=== PATIENT | male | born 1960 ===

== ENCOUNTER 2018-07-18 07:16 | Day surgery (SDC) | payer OTHER ==
[2018-07-18] VITALS (7 sets, daily range): BP systolic 109–128; BP diastolic 76–84
[~2018-07-18] VITALS: Ht 193 cm; Wt 99.8 kg
--- NOTE | 2018-07-18 07:00 | Anethesia Preoperative Eval ---
Anesthesia Pre-op PMH/ROS General Date of Evaluation: Jul 18, 2018 Time of Evaluation: 06:58 Anesthesiologist: mirian ASA Score: ASA 3 Mallampati Score Class I : Soft palate, uvula, fauces, pillars visible Class II: Soft palate, uvula, fauces visible Class III: Soft palate, base of uvula visible Class IV: Only hard plate visible Mallampati Classification: Class II Surgeon: stefany Diagnosis: abdominal pain Surgical Procedure: egd/colonoscopy Anesthesia History: none Social History: smoking - nonsmoker Family History: no anesthesia problems Allergies: Coded Allergies: No Known Allergies (Unverified , 07/18/18) Medications: see eMAR Patient NPO?: Yes Past Medical History Cardiovascular: Reports: other - hypercholesterolemia Musculoskeletal/Integumentary: Reports: other - skin cancer Anesthesia Pre-op Phys. Exam Physician Exam Last Vital Signs Date Time Temp Pulse Resp B/P (MAP) Pulse Ox O2 Delivery O2 Flow Rate FiO2 07/18/18 07:50 Room Air 07/18/18 07:41 97.0 54 18 128/81 99 Constitutional: NAD Neurologic: CN 2-12 intact Cardiovascular: RRR Respiratory: CTA Gastrointestinal: S/NT/ND Airway Exam Mallampati Score: Class II MO: limited Neck: flexible TMD: 2fb ROM: limited Anesthesia Pre-op A/P Risk Assessment & Plan Assessment: asa3 Plan: mac Status Change Before Surgery: No Pre-Antibiotics Drug: Laya Garcia MD Jul 18, 2018 07:00
[~2018-07-18 07:16] MED LIST: Atropine Inj 1mg/10ml Syr IV PRN; DiphenhydrAMINE 50mg/ml Inj IVP PRN; LR 1000ml 1,000 ML IVLG SCH; Midazolam 2mg/2ml Inj IVP PRN; fentaNYL 100 mcg/2 mL IV PRN
--- NOTE | 2018-07-18 07:37 | Short Stay Surgery H&P ---
History of Present Illness History of Present Illness Chief Complaint Abdominal pains, GERd and rectal bleeding HPI Maximilian Little is a 57 year old male who was admitted on for Gerds/Abdominal Pain/rectal bleedings Patient History Allergies: Coded Allergies: No Known Allergies (Unverified , 07/17/18) PAST MEDICAL HISTORY: (1) Hyperlipidemia (2) S/P umbilical hernia repair, follow-up exam (3) S/P inguinal hernia repair Review of Systems Cardiovascular: Reports: no symptoms Respiratory: Reports: no symptoms Skeletal: Reports: trauma Gastrointestinal: Reports: gastro esophageal reflux disease Genitourinary: Reports: no symptoms Endocrine: Reports: no symptoms Physical Exam Skin: normal HENT: normal Heart: normal Lungs: normal Abdomen: abnormal Extremities: normal Genitourinary: normal Plan Plan of Care Upper and lower GI endoscopy with biopsy Preop Interventions None. Summary of Findings See the reports Attestation Are the patient's medical conditions optimized for surgery? Attestation Response: yes Yecenia Guy MD Jul 18, 2018 07:37
[2018-07-18] MEDS ORDERED: OMEPRAZOLE20 M2 ORAL (07:38)
[2018-07-18] MEDS ORDERED: CRESTOR10 M2 ORAL (07:38)
--- NOTE | 2018-07-18 07:38 | Pre-Procedure Note/Attestation ---
Pre-Procedure Note/Attestation Complete Prior to Procedure Planned Procedure: left Procedure Narrative: Examination of the upper and the lower GI tract via endoscopy Indications for Procedure Pre-Operative Diagnosis: R/O gastritis/esophagitis/ Peptic ulcer/ colitis/hemorrhoids Attestation I attest that I discussed the nature of the procedure; its benefits; risks and complications; and alternatives (and the risks and benefits of such alternatives ), prior to the procedure, with the patient (or the patient's legal guest experience representative). I attest that, if there was a reasonable possibility of needing a blood transfusion, the patient (or the patient's legal guest experience representative) was given the [place] [employer] standardized written summary, pursuant to the Jarek Crisfield Blood Safety Act ([place] Health and Safety Code # 1645, as amended). I attest that I re-evaluated the patient just prior to the surgery and that there has been no change in the patient's H&P, except as documented below: Yecenia Guy MD Jul 18, 2018 07:38
[2018-07-18] MEDS ORDERED: LR 1000ml ONE (08:00)
[2018-07-18] MEDS ORDERED: Propofol 200mg/20ml IV ONE (08:00)
[2018-07-18] MEDS ORDERED: Lidocaine 1% MPF 10mg/ml 5ml ONE (08:00)
--- NOTE | 2018-07-18 08:27 | Endoscopy Procedure Note ---
Endoscopy Procedure Note General Indication for Procedure: Abdominal pain/Gerds/rectal bleeding Procedures Performed: EGD - Mutiple gastric polyps of fundic type removed by cold snare. Moderate Hiatal Hernia. Mild gastritis with bile in the stomach consistent with duodeno-gastric bile reflux. Biopsy done per random from gastric body., colonoscopy - Minimal internal hemorrhoids. Colonic diverticulosis. Poor colon clean up. Specimen: yes Pt Tolerated Procedure Well: Yes Estimated Blood Loss: none Anesthesia Anesthesiologist: Dr. Martinez Anesthesia: moderate sedation Medications Medication Given: see anesthesia record Inserted Devices Implant(s) used?: No Quality Quality of Bowel Preparation: Poor Did scope reach the cecum?: Yes Was there any complications?: No GI Core Measures 50 yrs or older w/o bx or poly: Yes 10yrs. F/U not recommended: Yes If not recommended, why?: 10 yrs. F/U needed: Yes 18 years or older w/prev. colo: Yes <3yrs. since last colonoscopy: No Med reason:<3 yrs.: System Reason:<3 yrs.: Last colonoscopy >= to 3yrs: Yes Yecenia Guy MD Jul 18, 2018 08:27
--- NOTE | 2018-07-18 08:28 | Discharge Instructions ---
Discharge Instructions Discharge Instructions Follow up with: See the docotor in office after 2 weeks. For Congestive Heart Failure Reminder Report to your physician any weight gain of 5 pounds or more in one week. Yecenia Guy MD Jul 18, 2018 08:28
--- NOTE | 2018-07-18 08:47 | Immediate Post-Op Evaluation ---
Immediate Post-Op Evalulation Immediate Post-Op Evalulation Procedure: egd/colonoscopy/bx Date of Evaluation: Jul 18, 2018 Time of Evaluation: 08:47 IV Fluids: 250ml lr Blood Products: none Estimated Blood Loss: negligible Blood Pressure Systolic: 109 Blood Pressure Diastolic: 76 Pulse Rate: 67 Respiratory Rate: 18 O2 Sat by Pulse Oximetry: 100 Temperature (Fahrenheit): 97.4 Pain Score (1-10): 0 Nausea: No Vomiting: No Complications none Patient Status: awake, reacts, patent Hydration Status: adequate Drug: Laya Garcia MD Jul 18, 2018 08:47
--- NOTE | 2018-07-18 08:49 | 48 Hour Post Anesthesia Eval ---
Post Anesthesia Evaluation Procedure: egd/colonoscopy/bx Date of Evaluation: Jul 18, 2018 Time of Evaluation: 08:49 Blood Pressure Systolic: 110 0: 76 Pulse Rate: 67 Respiratory Rate: 18 Temperature (Fahrenheit): 97.4 O2 Sat by Pulse Oximetry: 100 Airway: patent Nausea: No Vomiting: No Pain Intensity: 0 Hydration Status: adequate Cardiopulmonary Status: stable Mental Status/LOC: patient returned to baseline Post-Anesthesia Complications: none Follow-up care needed: N/A Laya Martinez MD Jul 18, 2018 08:49
--- NOTE | 2018-07-18 13:15 | Pre-op HX & Phy Repo 2 SIG ---
DATE OF ADMISSION: 07/18/2018 HISTORY OF PRESENT ILLNESS: The patient is a 57-year-old gentleman, who is being seen prior to undergoing the procedure of upper and lower GI endoscopic examination for which he has been scheduled to receive for evaluation of his gastrointestinal conditions and symptoms. The patient basically is reporting that he is experiencing pain over different parts of the abdomen, particularly over the epigastric area, which is associated with symptoms of heartburn. 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 He reported that he does have heartburn, which has gradually occurred during these process of activities as a police patrol officer. He reported to me that he received some colonoscopic examination approximately 8 to 10 years ago, the result of which is not available. He reports that the abdominal pain of moderate intensity and usually get worse after consumption of food. He denies having hematemesis, melena, but has had occasional rectal bleeding of a small amount, which seems to be consistent with underlying hemorrhoids. For the problem of heartburn, he has been treated with multiple medications including PPIs and antacids with some moderate good response. He denies having had any major weight loss. It is important to mention that the patient has history of taking nonsteroidal anti-inflammatory agents for different parts of the body, which was quite painful subsequent to work injuries. He denies having any regurgitation, etc. The patient tells me that during his function in the job that he has been sitting for a long period of time in the car, he has had problem with the rectum and hemorrhoids as well. He reports to me that by wearing police patrol officer's belt on his abdomen, it makes his reflux symptoms worse. It is also important to mention that he has had history of thrombosed hemorrhoids, which has been treated, goes back to October 2016. PAST MEDICAL HISTORY: Basically, none significant. He has had history of hyperlipidemia, but he denies having had history of hypertension or diabetes, arthritis, etc. PAST SURGICAL HISTORY: Umbilical hernia operation and inguinal hernia surgery in the past. ALLERGIES: None significant at this time. HABITS: He drinks occasionally moderately alcohol, but he denies smoking cigarettes or using illegal drugs. MEDICATIONS: Currently Crestor 10 mg and omeprazole. REVIEW OF SYSTEMS: Basically history of present illness. He denies having any chest pain, shortness of breath or headaches or cough. No urinary symptoms. Psychologically, he is stable. His main complaint at this time is GI as I mentioned. PHYSICAL EXAMINATION: GENERAL: At this time reveals alert, well-oriented gentleman, does not seem to be in any acute distress. He looks well developed and nourished. VITAL SIGNS: Are all stable. HEENT: Normocephalic. Pupils are equal in size and reactive to light and accommodation. No visible jaundice. Buccal cavity, tongue midline, well hydrated. No ulcers. NECK: Supple. No JVD, thyromegaly, or adenopathy. CHEST: Clear to auscultation and percussion. No rales or rhonchi. HEART: S1, S2 normal. Regular rhythm. No gallops or murmur. ABDOMEN: Soft, but there is tenderness over the upper and lower part of the abdomen. There is no palpable mass. No hepatosplenomegaly. Bowel sounds are present. EXTREMITIES: Unremarkable. NEUROLOGIC: Unremarkable. PRELIMINARY IMPRESSION: 1. Abdominal pain of uncertain etiology, rule out gastroesophageal acid reflux, gastritis, rule out NSAID-induced gastropathy. 2. History of rectal bleeding, possibly secondary to hemorrhoids, rule out colon polyps, tumors, colitis, etc. 3. Hyperlipidemia. RECOMMENDATION: It seems that the applicant is stable at this time to undergo the procedure of upper and lower GI endoscopy for which he has been scheduled. He understands the risks and benefits and will sign the consent. Said Fabiana Guy DR: MAHSA JOB#: [id number] CC:
--- NOTE | 2018-07-18 13:30 | Operative Note - Dictated ---
DATE OF OPERATION: 07/18/2018 SURGEON: Yecenia Guy M.D. PROCEDURE: Esophagogastroduodenoscopy with biopsy. PREOPERATIVE DIAGNOSIS: Abdominal pain, history of chronic gastroesophageal acid reflux, rule out peptic ulcer disease. POSTOPERATIVE DIAGNOSES: 1. Evidence of mild gastritis. 2. Multiple gastric polyps consistent with hyperplastic polyp, gastric polyposis removed by cold snare and biopsy forceps. 3. A moderate-sized hiatal hernia. 4. Evidence of bile in the stomach. MEDICATION USED: Per Dr. Martinez, anesthesiologist. INSTRUMENT: GIF Olympus upper GI video endoscope. DESCRIPTION OF PROCEDURE: The patient, after arriving endoscopy unit, was told about risks and benefits of the procedure, which he accepted and signed informed consent. At this time, he was put in the left lateral decubitus position. After adequate IV sedation, the scope was gently passed through the cricopharyngeal area, was lodged into the upper esophagus gradually advanced towards gastroesophageal junction. The entire length of the esophagus looked normal and no evidence of any inflammatory process, ulceration, stricture, etc. There was however evidence of moderate-sized hiatal hernia, but no Jaquez's noted. The scope was then guided into the stomach, gastric cavity was distended with insufflation of air revealing some [id number] amount of bile in the stomach consistent with duodenal gastric bile reflux. After distention of the stomach with insufflation of air, there was seen significant numbers of the small polypoid lesion approximately 1 to 2 mm around the greater curvature of the stomach consistent with hyperplastic polyps of fundic type. During a long procedure, numerous polyps were removed with cold snare and biopsy forceps as well. There was also evidence of mild gastritis and mild amount of bile in the stomach. At this point, one random biopsy from gastric body obtained and subsequently scope was passed through the antrum. The pylorus, first and second portion of duodenum were found to be normal. At this time, the scope was pulled back. A retroflexion maneuver was applied in the stomach. The area of the gastroesophageal junction was examined in a closer fashion, which did not reveal any other abnormalities. The feeling was that the applicant did have multiple gastric polyposis of benign type of fundic type and mild gastritis with the evidence of bile, which could have been secondary to bile gastritis. At this time, the scope was pulled out and procedure was terminated. The patient tolerated the procedure well. Said Fabiana Guy DR: MAHSA JOB#: [id number] CC:
--- NOTE | 2018-07-18 14:00 | Operative Note - Dictated ---
DATE OF OPERATION: 07/18/2018 SURGEON: Yecenia Guy M.D. PROCEDURE: Total colonoscopy. PREOPERATIVE DIAGNOSIS: Rectal bleeding, abdominal pain. POSTOPERATIVE DIAGNOSES: 1. Evidence of minimal internal hemorrhoid, most probable cause of occasional rectal bleeding. 2. Significant diverticulosis of the left colon. 3. Poor colonic cleanup. MEDICATION USED: Per Dr. Martinez, anesthesiologist. INSTRUMENT: GIF Olympus video colonoscope. DESCRIPTION OF PROCEDURE: The patient, after arriving an endoscopy unit, was told about risks and benefits of the procedure, which he accepted and signed informed consent. At this time, he was put on the left lateral decubitus position. After adequate IV sedation, the scope was gently passed through the anal area, which revealed evidence of hemorrhoidal tag outside of the rectum and also retroflexion maneuver, which was applied in the rectal area revealed evidence of minimal internal hemorrhoids, which were not friable. The rest of the rectum looked completely normal. At this time, the scope was gradually passed through highly redundant left colon, which revealed evidence of scattered diverticular lesions. There was no any evidence of tumors, colitis, polyps, etc. Finally, the scope was gradually passed towards the splenic flexure, transverse colon, right colon all the way to the base of the cecum. All these areas remained to be normal. As to be mentioned, the colon cleanup was poor and there was evidence of formed stool along the colon, however, no major pathology was found. At this time within 7 minutes, the scope was gradually pulled out and procedure was terminated. The patient tolerated the procedure well and left the endoscopy room in a good condition. Said Fabiana Guy DR: MAHSA JOB#: [id number] CC:
== END 2018-07-18 09:50 | disposition home or self-care (01) ==
LOC: GAS 07:16
DX: K62.5 Hemorrhage of anus and rectum (principal); K64.8 Other hemorrhoids; K31.7 Polyp of stomach and duodenum; K44.9 Diaphragmatic hernia without obstruction or gangrene; K57.30 Diverticulosis of large intestine without perforation or abscess without bleeding; E78.5 Hyperlipidemia, unspecified; K21.9 Gastro-esophageal reflux disease without esophagitis; E78.00 Pure hypercholesterolemia, unspecified; Z85.828 Personal history of other malignant neoplasm of skin
CPT/HCPCS: 43239; 45378; J2704; 94003; 94150